=== PATIENT | male | born 1975 | race Caucasian/White ===

== ENCOUNTER → 2017-10-04 | Outpatient (CLI) | payer OTHER ==
--- NOTE | 2017-10-04 11:27 | MR ---
EXAMINATION TYPE: MR lumbar spine wo con DATE OF EXAM: 10/04/2017 COMPARISON: NONE HISTORY: Low back pain CONTRAST: 0 mL intravenous Gadavist. TECHNIQUE: Multiplanar, multisequence images of the lumbar spine were acquired. FINDINGS: L5-S1: Central broad-based disc bulge is present with mild to moderate anterior thecal sac compressio n. On T2-weighted signal there is some mild increased signal within the posterior disc space. An cole lar tear may be present. In the sagittal plane appears to be some subligamentous disc extension beyon d the endplate suggesting small subligamentous disc herniation. There appears to be moderate bilatera l foraminal narrowing. Mild facet hypertrophy is present. L4-L5: Central disc herniation with subligamentous disc extension is present. This is broad-based acr oss the thecal sac with moderate impression. Facet hypertrophy and mild ligamentum flavum laxity is p resent contributing to some spinal canal narrowing. There is moderate right and mild left foraminal n arrowing. L3-L4: Broad-based disc bulge has moderate anterior thecal sac flattening. No AP spinal canal stenosi s is present. Facet hypertrophy is present. There is mild bilateral foraminal narrowing. Disc desicca tion is present. L2-L3: No significant disc bulge or disc herniation. No spinal canal stenosis. No foraminal stenosi s. . L1-L2: No significant disc bulge or disc herniation. No spinal canal stenosis. No foraminal stenosi s. . T12-L1: No significant disc bulge or disc herniation. No spinal canal stenosis. No foraminal stenos is. . IMPRESSION: 1. Disc desiccation L3-4 through L5-S1. 2. Subligamentous disc herniation L4-5 L5-S1. This has moderate anterior thecal sac compression. 3. There is moderate canal narrowing at L4-5 secondary to facet hypertrophy and ligamentum flavum lax ity. 4. Annular tear L5-S1
== END | disposition home or self-care (01) ==
LOC: RADMRIMAIN 07:05
PROVIDERS: ATTEND Family Medicine
DX: M51.27 Other intervertebral disc displacement, lumbosacral region (principal); M51.37 Other intervertebral disc degeneration, lumbosacral region; M24.28 Disorder of ligament, vertebrae; M46.96 Unspecified inflammatory spondylopathy, lumbar region; G95.20 Unspecified cord compression
CPT/HCPCS: 72148